=== PATIENT | male | born 1965 | race Caucasian/White ===

== ENCOUNTER → 2016-10-31 | Outpatient (CLI) | payer BC ==
--- NOTE | 2016-10-31 22:08 | MR ---
EXAMINATION TYPE: MR knee RT wo con DATE OF EXAM: 10/31/2016 5:39 PM COMPARISON: NONE HISTORY: Rt knee pain x 2 mos, no trauma TECHNIQUE: Multiplanar, multisequence imaging of the right knee is performed without IV contrast. FINDINGS: MEDIAL MENISCUS: There is increased signal within the posterior horn of the medial meniscus compatibl e with internal derangement. Anterior horn of the medial meniscus appears intact. LATERAL MENISCUS: Anterior and posterior horns are intact without tear. CRUCIATE LIGAMENTS: The anterior and posterior cruciate ligaments are intact and unremarkable. COLLATERAL LIGAMENTS: The medial collateral ligament and lateral collateral ligament complex are inta ct and unremarkable. EXTENSOR MECHANISM: There may be some mild increased signal within the distal quadriceps tendon near the insertion on the patella. Correlate with the patient's pain. EFFUSION: No significant suprapatellar joint effusion. POPLITEAL CYST: No popliteal/newell cyst. TRICOMPARTMENT SPACES: Preserved CARTILAGE: No significant thinning or fracture of the articular cartilage is identified. BONE MARROW SIGNAL: No focal abnormal marrow signal is appreciated. OTHER: No additional significant abnormality is appreciated. IMPRESSION: 1. Severe internal derangement posterior horn medial meniscus. 2. Suggestion of mild injury to the distal quadriceps tendon near the insertion of the patella. Corre late with the patient's history and pain.
== END | disposition home or self-care (01) ==
LOC: RADMRIMAIN 17:05
PROVIDERS: ATTEND Orthopaedic Surgery
DX: M23.321 Other meniscus derangements, posterior horn of medial meniscus, right knee (principal)

== ENCOUNTER 2024-06-29 09:47 | Emergency (ER) | payer BC ==
[2024-06-29 10:07] VITALS: RESP 18
--- NOTE | 2024-06-29 10:44 | ED ---
Upper Extremity HPI - General Chief Complaint: Extremity Injury, Upper Stated Complaint: Fall-back pain Time Seen by Provider: 06/29/24 10:09 Source: patient, RN notes reviewed Mode of arrival: ambulatory Limitations: physical limitation - History of Present Illness Initial Comments: 39-year-old male with no significant medical history presents to the emergency department with his for complaint of a fall and left-sided injury lower prior to arrival. Patient states that he was outside and slipped on ice falling onto his left shoulder. Patient denies hitting his head or loss conscious at the time the injury. Denies blood thinner use. Patient has pain with range of motion of the left shoulder and pain of the anterior chest on inspiration. - Related Data Home Medications Medication Instructions Recorded Confirmed Aspirin [Adult Low Dose Aspirin EC] 81 mg PO DAILY 04/25/15 04/28/15 Allergies Allergy/AdvReac Type Severity Reaction Status Date / Time Penicillins Allergy Nausea & Verified 06/29/24 10:07 Vomiting Review of Systems ROS Statement: Those systems with pertinent positive or pertinent negative responses have been documented in the HPI. ROS Other: All systems not noted in ROS Statement are negative. Past Medical History Past Medical History: No Reported History History of Any Multi-Drug Resistant Organisms: None Reported Additional Past Surgical History / Comment(s): sinus surgery Past Anesthesia/Blood Transfusion Reactions: No Reported Reaction Past Psychological History: No Psychological Hx Reported Smoking Status: Former smoker Past Alcohol Use History: Occasional Past Drug Use History: None Reported - Past Family History Mother Family Medical History: Cancer General Exam Limitations: physical limitation Respiratory exam: Present: normal lung sounds bilaterally, chest wall tenderness (anterior left on palpation and deep inspiration). Absent: respiratory distress, wheezes, rales, rhonchi, stridor Cardiovascular Exam: Present: regular rate, normal rhythm, normal heart sounds. Absent: systolic murmur, diastolic murmur, rubs, gallop, clicks GI/Abdominal exam: Present: soft, normal bowel sounds. Absent: distended, tenderness, guarding, rebound, rigid Left Shoulder Exam: Present: normal inspection, tenderness. Absent: full ROM, swelling, deformity, crepitus, dislocation Elbow exam: Present: full ROM. Absent: tenderness, swelling Forearm Wrist exam: Present: full ROM. Absent: tenderness, swelling Hand Wrist exam: Present: normal inspection, full ROM Neuro motor exam: Present: wrist extension intact, thumb opposition intact Vascular: Present: normal capillary refill, radial pulse (2+). Absent: vascular compromise Back exam: Present: normal inspection Neurological exam: Present: alert, oriented X3, CN II-XII intact Course Vital Signs 06/29/24 06/29/24 10:02 10:33 Temperature 98.3 F Pulse Rate 87 Respiratory 18 18 Rate Blood Pressure 143/94 O2 Sat by Pulse 97 Oximetry Medical Decision Making - Medical Decision Making Was pt. sent in by a medical professional or institution (, PA, CONSTRUCTION PROJECT MANAGER, urgent care, hospital, or group home...) When possible be specific @ -No Did you speak to anyone other than the patient for history (EMS, parent, family, police, friend...)? What history was obtained from this source @ -No Did you review nursing and triage notes (agree or disagree)? Why? @ -I reviewed and agree with nursing and triage notes Were old charts reviewed (outside hosp., previous admission, EMS record, old EKG, old radiological studies, urgent care reports/EKG's, group home records)? Report findings @ -No old charts were reviewed Differential Diagnosis (chest pain, altered mental status, abdominal pain women, abdominal pain men, vaginal bleeding, weakness, fever, dyspnea, syncope, headache, dizziness, GI bleed, back pain, seizure, CVA, palpatations, mental health, musculoskeletal)? @ -Differential Musculoskeletal Muscular strain, contusion, ligament sprain, fracture, arthritis, septic arthritis, bursitis, cellulitis, muscle spasm, nerve compression, DVT, arterial occlusion, herpes zoster, electrolyte abnormality, tumor.... This is not meant to be in all inclusive list EKG interpreted by me (3pts min.). @ -none X-rays interpreted by me (1pt min.). @ -X-ray of the left ribs and AP chest no acute process XR left shoulder no acute fracture or dislocation, acromioclavicular and glenohumeral joint spaces within normal limits CT interpreted by me (1pt min.). @ -None done U/S interpreted by me (1pt. min.). @ -None done What testing was considered but not performed or refused? (CT, X-rays, U/S, labs)? Why? @ -None What meds were considered but not given or refused? Why? @ -None Did you discuss the management of the patient with other professionals (professionals i.e. DrAlli, PA, CONSTRUCTION PROJECT MANAGER, lab, RT, psych nurse, social media director, labeler, teacher, chief privacy officer, case advocate)? Give summary @ -No Was smoking cessation discussed for >3mins.? @ -No Was critical care preformed (if so, how long)? @ -No Were there social determinants of health that impacted care today? How? (Homelessness, low income, unemployed, alcoholism, drug addiction, transportation, low edu. Level, literacy, decrease access to med. care, fdc, rehab)? @ -No Was there de-escalation of care discussed even if they declined (Discuss DNR or withdrawal of care, Hospice)? DNR status @ -No What co-morbidities impacted this encounter? (DM, HTN, Smoking, COPD, CAD, Cancer, CVA, ARF, Chemo, Hep., AIDS, mental health diagnosis, sleep apnea, morbid obesity)? @ -None Was patient admitted / discharged? Hospital course, mention meds given and route, prescriptions, significant lab abnormalities, going to OR and other pertinent info. @ -Discharge. 59-year-old male presenting with pain to the left anterior chest and shoulder after a fall. Pain with range of motion is noted of the left shoulder addition to palpation of the anterior left chest with no crepitus or obvious deformity. Lung sounds clear bilaterally. Patient divided with pain medication. X-ray of the left ribs and AP chest and left shoulder no evidence for acute process. Patient is however provided with other pain in the right for all to orthopedic physician assistant his pain persists and does not improve. Recommend the patient does follow-up with primary care provider in the next 24 to 72 hours for further evaluation. Continue to take Tylenol Motrin as needed for pain relief. Case discussed with Dr. Maldonado Undiagnosed new problem with uncertain prognosis? @ -No Drug Therapy requiring intensive monitoring for toxicity (Heparin, Nitro, Insulin, Cardizem)? @ -No Were any procedures done? @ -No Diagnosis/symptom? @ -shoulder pain, rib pain Acute, or Chronic, or Acute on Chronic? @ -acute Uncomplicated (without systemic symptoms) or Complicated (systemic symptoms)? @ -uncomplicated Side effects of treatment? @ -No Exacerbation, Progression, or Severe Exacerbation? @ -No Poses a threat to life or bodily function? How? (Chest pain, [place], [place], pneumonia, PE, COPD, DKA, ARF, appy, cholecystitis, CVA, Diverticulitis, Homicidal, Suicidal, threat to staff... and all critical care pts) @ -No Disposition Clinical Impression: Rib sprain, Shoulder pain Disposition: HOME SELF-CARE Condition: Good Instructions (If sedation given, give patient instructions): Shoulder Sprain (ED) Additional Instructions: Please return to the Emergency Department if symptoms worsen or any other concerns. Is patient prescribed a controlled substance at d/c from ED?: No Referrals: Sydnie Rankin MD [Primary Care Provider] - 1-2 days Albert Fraire DO [Doctor of Osteopathic Medicine] - 1-2 days Time of Disposition: 11:18
[2024-06-29] MEDS: Acetaminophen-Codeine 300-30mg TAB PO STA (11:07)
--- NOTE | 2024-06-29 11:07 | XR ---
EXAMINATION TYPE: XR shoulder complete LT DATE OF EXAM: 06/29/2024 11:03 AM COMPARISON: None. CLINICAL INDICATION: Male, 59 years old with history of fall, pain, injury, pain TECHNIQUE: Three views of the left shoulder are obtained. FINDINGS: There is no acute fracture/dislocation evident in the left shoulder. The acromioclavicul ar and glenohumeral joint spaces appear within normal limits. The visualized ribs are intact and unr emarkable. IMPRESSION: There is no acute fracture or dislocation in the left shoulder. [facility], , 06/29/2024 11:05 AM
--- NOTE | 2024-06-29 11:10 | XR ---
EXAMINATION TYPE: XR ribs LT w pa chest xray DATE OF EXAM: 06/29/2024 11:02 AM COMPARISON: None. CLINICAL INDICATION: Male, 59 years old with history of fall, pain, injury, TECHNIQUE: Single frontal view of the chest is obtained. A frontal and oblique images of the left-lisa ed ribs. FINDINGS: There is no focal air space opacity, pleural effusion, or pneumothorax seen. The cardiac silhouette size is within normal limits. The osseous structures are intact. Dedicated images of the left-sided ribs show no acute displaced fracture. Overlying soft tissue is un remarkable. IMPRESSION: No acute process. [facility], , 06/29/2024 11:08 AM
[2024-06-29 11:46] VITALS: BP 136/87; PULSE 82; TEMP 98.1
== END 2024-06-29 13:00 | disposition home or self-care (01) ==
LOC: EC 09:47
DX: S23.41XA Sprain of ribs, initial encounter (principal); M25.512 Pain in left shoulder; W00.0XXA Fall on same level due to ice and snow, initial encounter; Z87.891 Personal history of nicotine dependence; Z88.0 Allergy status to penicillin
CPT/HCPCS: 99283

== ENCOUNTER 2024-12-20 12:18 | Day surgery (SDC) | payer BC ==
[~2024-12-20 12:18] MED LIST: LIDOCAINE 1% (10MG/ML) FOR IV START INTRADERMA PRN
[2024-12-20 13:02] VITALS: TEMP 97.3
[2024-12-20] MEDS: LACTATED RINGERS 1,000 ML IV SCH (13:06)
[2024-12-20] MEDS: IV FLUID CONTINUATION 1,000 ML IV ONE (13:07)
[2024-12-20] MEDS ORDERED: LIDOCAINE 1% INJ 10MG/ML (20 ML MDV) ONE (13:20)
[2024-12-20] MEDS ORDERED: PROPOFOL 10 MG/ML 20 ML VIAL IV ONE (13:20)
--- NOTE | 2024-12-20 13:21 | P.GSHP ---
History of Present Illness H&P Date: 12/20/24 Chief Complaint: Screening colonoscopy Is a 59-year-old male presents today for screening colonoscopy. Patient denies any significant GI complaints. Past Medical History Past Medical History: Asthma, Thyroid Disorder Additional Past Medical History / Comment(s): cold air induced asthma History of Any Multi-Drug Resistant Organisms: None Reported Additional Past Surgical History / Comment(s): sinus surgery, colonoscopy Past Anesthesia/Blood Transfusion Reactions: No Reported Reaction Smoking Status: Former smoker - Past Family History Mother Family Medical History: Cancer Medications and Allergies Home Medications Medication Instructions Recorded Confirmed Type Aspirin [Adult Low Dose Aspirin EC] 81 mg PO DAILY 04/25/15 12/20/24 History Albuterol Inhaler [Ventolin Hfa 1 - 2 puff INHALATION Q6H PRN 12/17/24 12/20/24 History Inhaler] Levothyroxine Sodium [Synthroid] 100 mcg PO DAILY 12/17/24 12/20/24 History Allergies Allergy/AdvReac Type Severity Reaction Status Date / Time Penicillins Allergy Nausea & Verified 12/17/24 13:05 Vomiting Surgical - Exam Vital Signs Temp Pulse Resp BP Pulse Ox 97.3 F L 67 16 124/86 98 12/20/24 13:00 12/20/24 13:00 12/20/24 13:00 12/20/24 13:00 12/20/24 13:00 - General well developed, well nourished, no distress - Eyes PERRL - ENT normal pinna - Neck no masses - Respiratory normal expansion - Cardiovascular Rhythm: regular - Abdomen Abdomen: soft, non tender Assessment and Plan Assessment: Will perform screening colonoscopy.
--- NOTE | 2024-12-20 13:42 | P.OP ---
Date of Procedure: 12/20/24 Preoperative Diagnosis: Screening colonoscopy Postoperative Diagnosis: Diverticulosis Procedure(s) Performed: Colonoscopy Anesthesia: MAC Surgeon: Benedicto Massey Pathology: none sent Condition: stable Disposition: PACU Description of Procedure: The patient was placed on the endoscopy table in the lateral position. He received IV sedation. Digital rectal exam was performed. This revealed no abnormalities. The flexible colonoscope was then placed patient Anaspaz throughout the entire colon. The ileocecal valve was visualized. The cecum, ascending and transverse colon appeared normal. In the descending and sigmoid colon there is mild diverticular changes. The scope was brought back the rectum this appeared normal. Scope withdrawn the patient. Patient should have repeat screening colonoscopy in 10 years.
[2024-12-20 13:46] VITALS: RESP 14
[2024-12-20 13:59] VITALS: BP 103/68; PULSE 78
== END 2024-12-20 14:20 | disposition home or self-care (01) ==
LOC: ORWHC2ENDO 12:18
PROVIDERS: ATTEND Surgery
DX: Z12.11 Encounter for screening for malignant neoplasm of colon (principal); K57.30 Diverticulosis of large intestine without perforation or abscess without bleeding; E07.9 Disorder of thyroid, unspecified; J45.998 Other asthma; Z79.890 Hormone replacement therapy; Z79.82 Long term (current) use of aspirin; Z79.899 Other long term (current) drug therapy; Z87.891 Personal history of nicotine dependence; Z88.0 Allergy status to penicillin
CPT/HCPCS: 45378; J2003; J2704